=== PATIENT | female | born 1965 | race African-American/Black ===

== ENCOUNTER 2022-04-01 10:23 | Outpatient (CLI) | payer OTHER, MEDICAID | END 2022-04-01 10:24 | disposition home or self-care (01) | LOC: CSHCP 10:23 | PROVIDERS: ATTEND Internal Medicine | DX: G47.30 Sleep apnea, unspecified (principal); R94.2 Abnormal results of pulmonary function studies | CPT/HCPCS: 94060; 94726; 94729; 94760 ==

== ENCOUNTER 2024-05-13 08:46 | Outpatient (CLI) | payer MEDICARE, MEDICAID | END 2024-05-13 08:47 | disposition home or self-care (01) | LOC: CSHSLEEP 08:46 | PROVIDERS: ATTEND Internal Medicine | DX: G47.33 Obstructive sleep apnea (adult) (pediatric) (principal) | CPT/HCPCS: 95810 ==